=== PATIENT | male | born 1980 | race American Indian/Alaskan Native ===

== ENCOUNTER 2016-11-03 00:10 | Emergency (ER) | payer SELFPAY ==
[2016-11-03 02:01] LABS: Bilirubin,Urine Negative (Negative); Ketones,Urine Negative (Negative)
[2016-11-03 02:02] LABS: Blood,Urine Negative (Negative); Leukocyte Esterase,Urine Negative (Negative); Nitrite,Urine Negative (Negative); Urobilinogen,Urine < 0.2 mg/dL (<2.0)
[2016-11-03 02:04] LABS: Mucus,Urine Rare /HPF
--- NOTE | 2016-11-03 05:51 | Emergency Department Report ---
HPI - General Chief Complaint: Urogenital-Male Time Seen by Provider: 11/03/16 05:26 - HPI HPI: Patient is a 36-year-old male who presents to clinic complaining of penile discharge 2 day. Patient states he noticed a whitih/yellowih discharge last night. Patient complains of pain with urination. Patient admits recent unprotected sex last Monday. Patient denies any localized penile or testicular pain or swelling. Patient denies any frequency or urge, fever, nausea vomiting, abdominal pain, shortness of breath or chest pain. ED Past Medical Hx - Past Medical History Previous Medical History?: No - Surgical History Past Surgical History?: No - Social History Smoking Status: Never Smoker Substance Use Type: None ED Review of Systems ROS: Stated complaint: POSS STD Other details as noted in HPI Constitutional: denies: chills, fever Eyes: denies: eye pain, eye discharge, vision change ENT: denies: ear pain, throat pain Respiratory: denies: cough, shortness of breath, wheezing Cardiovascular: denies: chest pain, palpitations Endocrine: no symptoms reported Gastrointestinal: denies: abdominal pain, nausea, vomiting, diarrhea Genitourinary: dysuria, discharge. denies: urgency, frequency, hematuria, testicular pain, testicular mass Musculoskeletal: denies: back pain, joint swelling, arthralgia Skin: denies: rash, lesions Neurological: denies: headache, weakness, paresthesias Psychiatric: denies: anxiety, depression Hematological/Lymphatic: denies: easy bleeding, easy bruising Physical Exam - Physical Exam Vital Signs: Vital Signs 11/03/16 00:20 Temperature 98.9 F Pulse Rate 66 Respiratory 20 Rate Blood Pressure 140/86 [Right] O2 Sat by Pulse 100 Oximetry Physical Exam: GENERAL: Alert and oriented x3, no apparent distress, Normal Gait, atraumatic. ABDOMEN: No organomegaly was noted,Positive bowel sounds, soft, and non- distended. . Nontender to palpation on all Quadrants, NO CVA tenderness. UROGENITAL: No scrotal mass, Scrotum non tender to palpation bilaterally, no hernia, no scars or penile discharge. PSYCHIATRIC: Mood is congruent with affect, denies suicidal or homicidal ideations. SKIN: Warm and dry, No lesions, No ulceration or induration present. ED Course Vital Signs 11/03/16 00:20 Temperature 98.9 F Pulse Rate 66 Respiratory 20 Rate Blood Pressure 140/86 [Right] O2 Sat by Pulse 100 Oximetry ED Medical Decision Making - Medical Decision Making 36-year-old male presents with STD exposure. ED course: urinalysis and gonorrhea and Chlamydia cultures obtained. Urinalysis positive for leukorrhea Patient received 250 mg of Rocephin, azithromycin 1 g, Flagyl 2 g. Discussed with patient possible STD due to exposure. Discussed with patient findings and treatment Discussed prophylaxis treatment patient is to abstain from sex 7-10 days as treatment. Discussed patient partner knowledge and treatment. Discussed the follow-up with the health department for further STD testing. Patient's alert and oriented times 3. Vital signs are normal patient is in no acute discharge. Patient will be discharged home with instructions. Critical care attestation.: If time is entered above; I have spent that time in minutes in the direct care of this critically ill patient, excluding procedure time. ED Disposition Clinical Impression: STD (sexually transmitted disease), Exposure to STD Disposition: DC-01 TO HOME OR SELFCARE Is pt being admited?: No Does the pt Need Aspirin: No Condition: Stable Instructions: Sexually Transmitted Diseases (ED), Safe Sex (ED) Referrals: PRIMARY CARE, [Primary Care Provider] - 3-5 Days [facility] [Outside] - 3-5 Days [facility] [place] [Outside] - 3-5 Days [facility] [Outside] - 3-5 Days Forms: Work/School Release Form(ED)
[2016-11-03] MEDS ORDERED: ROCEPHIN IM ONE (05:52)
[2016-11-03] MEDS ORDERED: ZITHROMAX PO ONE (05:52)
[2016-11-03] MEDS ORDERED: XYLOCAINE 1% MPF 5 mL INFILTRATI ONE (05:53)
[2016-11-03] MEDS ORDERED: FLAGYL PO ONE (05:53)
[2016-11-03 06:25] VITALS: BP 143/101
== END 2016-11-03 06:24 | disposition home or self-care (01) ==
LOC: ED 00:10
DX: A64 Unspecified sexually transmitted disease (principal)
CPT/HCPCS: 81001; 87591; 96372; 99283; J0696

== ENCOUNTER 2016-11-17 16:27 | Emergency (ER) | payer SELFPAY | END 2016-11-17 16:28 | disposition left against medical advice (07) | LOC: ED 16:27 | DX: Z53.21 Procedure and treatment not carried out due to patient leaving prior to being seen by health care provider (principal) ==